=== PATIENT | male | born 1990 | race Caucasian/White ===

== ENCOUNTER 2016-11-08 18:34 | Emergency (ER) | payer MEDICARE ==
--- NOTE | ~2016-11-08 | CR72 ---
[facility] A Service of [facility] & [facility] & [facility] RADIOLOGY TEXT RESULTS PATIENT: MARIA ELENA MCFARLANE LOCATION: [facility] : [birth year] UNIT #: [id number] AGE: [address]: Alec Padilla DO SEX: M ORDER DR: [id number] [facility] [address] [place], [place] [address] [id number] MR#: [id number] Acc #: [id number] NAME: MARIA ELENA MCFARLANE : 1990 SEX: M STUDY DATE/TIME: 11/08/2016 19:20 UNIT: [facility] ROOM: STUDY DESCRIPTION: CR Chest Single View Portable Attending Physician: Alec Padilla D.O. Ordering Physician: Alec Padilla D.O. Primary Care Physician: Toño Orozco M.D. MEDICAL IMAGING REPORT This report is preliminary unless electronic signature is present EXAM Portable chest. HISTORY Congestion today. Possible aspiration. Heroin overdose today. Unresponsive. FINDINGS Cardiac size and pulmonary vascularity are within normal limits allowing for shallow inspiration. No definite infiltrates or effusions. Postop changes in the right glenoid. Mild degenerative changes in the right glenohumeral joint. IMPRESSION No definite active disease in the lungs. Low lung volumes. Dictated by... Jt Lala M.D. THIS IS AN ELECTRONICALLY VERIFIED REPORT Jt Lala M.D. at 11/09/2016 1:10 PM GLENN/marysol TD: 11/08/2016 23:33 JOB #: [id number] MEDICAL IMAGING REPORT Page 1 of 1 COPY
[~2016-11-08 18:34] MED LIST: DEPAKOTE PO; FLEXERIL PO; IBUPROFEN PO; KEFLEX PO; LEXAPRO20 MG PO; METHADONE PO; NEURONTIN300 MG PO; OLEPTRO ER150 MG PO; PHENERGAN25 MG PO; PROPRANOLOL PO; VICODIN PO; VOLTAREN50 MG PO
[2016-11-08 19:30] LABS: BASOPHIL% 0.5 % (0-2.5); EOSINOPHIL# 0.3 X10e3 (0-0.7); EOSINOPHIL% 3.4 % (0.0-7.0); HEMATOCRIT 44.9 % (38.0-50.0); HEMOGLOBIN 15.3 gm/dL (13.0-16.0); LYMPHOCYTE% 21.3 % (17.0-45.0); MEAN CELL VOLUME 88.5 FL (83-96); MEAN CORPUSCULAR HEMOGLOBIN 30.1 PG (28-34); MONOCYTE# 0.8 X10e3 (0-1.0); MONOCYTE% 8.3 % (3.0-12.0); NEUTROPHIL# 6.2 X10e3 (1.5-7.1); NEUTROPHIL% 66.5 % (40-75); PLATELET COUNT 294 X10e3 (140-420); RED BLOOD COUNT 5.07 X10e (3.90-5.60); RED CELL DISTRIBUTION WIDTH 13.5 % (11.0-15.5); WHITE BLOOD COUNT 9.4 X10e3 (4.0-10.5)
[2016-11-08 19:36] LABS: DIFF IND NO
[2016-11-08 19:53] LABS: ALKALINE PHOSPHATASE 78 U/L (32-92); ALT (SGPT) 42 U/L (10-40); AST (SGOT) 29 U/L (10-42); BILIRUBIN, DIRECT 0.1 mg/dL (0.0-0.2); BILIRUBIN,INDIRECT 0.4 mg/dL (0.0-0.9); BILIRUBIN,TOTAL 0.5 mg/dL (0.2-2.0); BLOOD UREA NITROGEN 25 mg/dL (9-23); CALCIUM SERUM 8.3 mg/dL (8.4-10.2); CARBON DIOXIDE 27 mmol/L (22-31); CHLORIDE 98 mmol/L (100-111); GLOM FILT RATE Estimated 103.4 mL/min (>60); GLUCOSE FASTING 153 mg/dL (70-110); POTASSIUM 3.1 mmol/L (3.5-5.1); PROTEIN TOTAL SERUM 7.4 g/dL (6.0-8.3); SALICYLATE <4.0 mg/dL; SODIUM 132 mmol/L (135-145)
[2016-11-08 19:54] LABS: ACETAMINOPHEN <10 ug/mL; ALCOHOL BLOOD <5 mg/dL (0)
[2016-11-08 21:58] LABS: AMPHETAMINE NEG (NEG); BARBITURATES NEG (NEG); BENZODIAZEPINES POS (NEG); COCAINE NEG (NEG); MARIJUANA POS (NEG); OPIATES POS (NEG); TRICYCLIC ANTIDEPRESSANTS NEG (NEG); U METHADONE NEG (NEG)
== END 2016-11-08 22:00 | disposition home or self-care (01) ==
LOC: CED 18:34
PROVIDERS: Emergency Medicine
DX: T40.1X1A Poisoning by heroin, accidental (unintentional), initial encounter (principal); R56.9 Unspecified convulsions; Z86.19 Personal history of other infectious and parasitic diseases
CPT/HCPCS: 36415; 71010; 80048; 80076; 80307; 84484; 85025; 96374; 99284; G0480; J2405

== ENCOUNTER 2016-11-29 09:00 | Inpatient (IN) | payer MEDICARE ==
--- NOTE | ~2016-11-29 | PN ---
Unit #: [id number] #: [id number] Patient: MARIA ELENA EDMONDS [id number] [facility] [address] [place] [address] [id number] I MR#: [id number] NAME: MARIA ELENA EDMONDS ROOM: [facility] Age: 25 Sex: M Admission Date: 11/29/2016 : 1990 Attending Physician: Annette Rankin M.D. Admitting Physician: Annette Rankin M.D. Primary Care Physician: Primary Care Physician Lelia BEAN NOTES DATE OF SERVICE: 12/01/2016 SUBJECTIVE Mr. Edmonds is a 25-year-old white male who was seen today and chart was reviewed and the case was discussed with the staff. He has been anxious, withdrawn, and rather seclusive to himself. Meanwhile, he has been cooperative with treatment recommendations and has been taking medications and tolerating them fairly well with no reported side effects. MENTAL STATUS EXAMINATION Young white male who was casually dressed with fair personal hygiene, appears to be in no acute distress or discomfort. He was awake and alert on interaction with intact orientation. His mood was anxious with a congruent affect. He denies any suicidal or homicidal ideations. His insight and judgment remain slightly impaired. TREATMENT PLAN 1. We will continue his current medications and treatment protocol. We will monitor his response to medications and make further adjustments as needed. 2. We will continue to follow up. Dictated by... [place] Gaviria/bol TD: 12/01/2016 08:30 JOB #: [id number] NIYA PROGRESS NOTES Page 1 of 1 X Annette Rankin MD PROGRESS NOTE
--- NOTE | ~2016-11-29 | DS ---
Unit #: [id number] #: [id number] Patient: MARIA ELENA MCFARLANE [id number] [facility] [address] [place] [address] [id number] I MR#: [id number] NAME: MARIA ELENA MCFARLANE ROOM: [facility] Age: 26 Sex: M Admission Date: 11/29/2016 : 1990 Discharge Date: 12/04/2016 Attending Physician: Annette Rankin M.D. Primary Care Physician: Primary Care Physician No DISCHARGE SUMMARY IDENTIFYING DATA Mr. Mcfarlane is a 25-year-old single disabled white male with history of substance abuse and dependence, who is known to me from previous encounters was self-referred to the hospital. DISCHARGE DIAGNOSES PSYCHIATRIC 1. Opiate dependence moderate. 2. Acute withdrawals. 3. Alcohol dependence moderate. 4. Opioid induced mood disorder. MEDICAL 1. Seizure disorder. 2. Traumatic brain injury. HISTORY OF PRESENT ILLNESS/PAST PSYCHAITRIC HISTORY/PAST MEDICAL HISTORY Please copy and paste from initial psychiatric evaluation. HOSPITAL COURSE The patient was admitted to the adult chemical dependence unit at [facility] k[facility]ie [facility] and was oriented to the hospital environment. Routine p.r.n. medications were initiated and he was started on the detox protocol and he was closely monitored. He was taking medications regularly and is tolerating them fairly well and was able to show a decent therapeutic response and such it was decided that he will be discharged and we will continue treatment on outpatient basis. DISCHARGE MEDICATIONS None. DISCHARGE CONDITION Stable. PROGNOSIS Guarded. Dictated by... Annette Rankin M.D. Unit #: [id number] #: [id number] Patient: MARIA ELENA MCFARLANE SEAN/rljeramy TD: 12/26/2016 02:55 JOB #: [id number] DISCHARGE SUMMARY Page 1 of 1 X Annette Rankin MD X DISCHARGE SUMMARY
--- NOTE | ~2016-11-29 | A ---
[facility] Nutrition Therapy DATE: 12/01/16 Patient: MARIA ELENA MCFARLANE Physician: AFAIRF Address: [address] [address] Room/Bed: P181-1 [facility], Zip: [place] [address] Admit Date: 11/29/16 Date of : [birth year] Height: 5 10 Weight: [phone] NUTRITIONAL ASSESSMENT: REASON: 1 point malnutrition score re: unintentional weight loss Admitting dx: 25 y/o male admitted with heroin abuse, SI PMH: Epilepsy, TBI, Hep C Anthropometrics: Ht: 70", Wt: 170 lbs (pt confirms), UBW: 180-185 lbs, BMI: 24.4 (normal) Labs: No new labs available Meds: Reviewed Assessment: Chart reviewed, events noted. See admitting dx and PMH as stated above. Patient is on disability, is homeless, used IV heroin and is wanting to get clean. He is on a regular diet, no caffeine, large portion entree ordered. UBW as stated above, pt confirms 10-15 lb weight loss in past 2 months due to drug abuse and decreased oral inake (6-8% body weight loss; significant). States current appetite is fair-good and that he is eating quite well now, however he is amenable to daily Ensure shakes to help prevent further unintentional weight loss. RD encouraged adequate kcal/protein intake, patient agreed. See recs below. Dx: Unintentional weight loss r/t drug abuse, decreased oral intake AEB 6-8% body weight loss in 2 months, 1 point malnutrition risk score. Intervention: Daily Ensure shakes Monitoring, Evaluation and Goals: 1. PO intake > 50% of meals/supps. 2. Prevent further unintentional weight loss. Monitor: Per protocol, criteria to determine if above goals met Recommendations: 1. Continue regular diet with no caffeine, encourage fluids. Will continue to send large portion entree. RD wrote in chart for MD to order daily Ensure shakes (vanilla or chocolate). Will notify [facility] staff to send with AM snack. 2. Please weigh q 3 days for monitoring purposes. [facility] Nutrition Therapy DATE: 12/01/16 Patient: MARIA ELENA MCFARLANE Physician: AFAIRF Address: [address] [address] Room/Bed: P181-1 [facility], Zip: [place] [address] Admit Date: 11/29/16 Date of : [birth year] Height: 5 10 Weight: [phone] 3. Please consult RD with any further nutritional needs. Mild nutrition risk Respectfully, Aster Whitley, SOFIA, LD [facility] cc: client file
--- NOTE | ~2016-11-29 | HP ---
Unit #: [id number] #: [id number] Patient: MARIA ELENA MCFARLANE [id number] [place] [address] [id number] I MR#: [id number] NAME: MARIA ELENA MCFARLANE ROOM: [facility] Age: 25 Sex: M Admission Date: 11/29/2016 : 1990 Attending Physician: Annette Rankin M.D. Admitting Physician: Annette Rankin M.D. Primary Care Physician: Primary Care Physician No HISTORY AND PHYSICAL HISTORY OF PRESENT ILLNESS The patient is a 25-year-old male admitted to [facility] on 11/30/2016 for heroin abuse and suicidal ideations. PAST MEDICAL HISTORY 1. TBI 2. Epilepsy PAST SURGICAL HISTORY 1. Eye surgery 2. Shoulder 3. Right wrist times two 4. Right knee SOCIAL HISTORY He is disabled. He is homeless. He uses one gram of heroin per day. FAMILY MEDICAL HISTORY Noncontributory. ALLERGIES No known drug allergies. CURRENT MEDICATIONS 1. Seroquel 2. Ambien 3. Protonix 4. Keppra 5. Thorazine REVIEW OF SYSTEMS CONSTITUTIONAL: No fever or chills. HEENT: Denies any sore throat, ear pain or runny nose. CARDIOVASCULAR: Denies chest pain, irregular heart rhythm or palpitations. CHEST: Denies shortness of breath or cough. No hemoptysis. GASTROINTESTINAL: Denies nausea, vomiting, diarrhea or chronic constipation. ENDOCRINE: Denies history of increased thirst or urination. No recent significant weight loss or gain. GENITOURINARY: Denies dysuria, frequency, or hematuria. SKIN: Denies any rashes. HEMATOLOGIC: Denies history of increased bleeding or bruising. MUSCULOSKELETAL: Denies any hot, swollen joints. No generalized muscle Unit #: [id number] #: [id number] Patient: MARIA ELENA MCFARLANE pain. NEUROLOGIC: Denies problems with vision or speech. No frequent, severe headaches. No numbness, tingling or weakness in any extremities. Denies loss of bladder or bowel control. PHYSICAL EXAM GENERAL: He is awake, alert and oriented in no acute distress. VITAL SIGNS: Temperature 97.7, heart rate 72, respiration 16, blood pressure 137/92. HEIGHT: 5'10". WEIGHT: 170 pounds. SKIN: Warm and dry without rash or lesion. HEENT: Normocephalic. TMs not viewed. Oral and nasal passages clear. Conjunctivae clear. PERRLA. EOMs intact. NECK: Supple without lymphadenopathy or thyromegaly. HEART: Regular rate and rhythm without murmur. LUNGS: Clear. ABDOMEN: Soft, nontender. : Not done. EXTREMITIES: No evidence of cyanosis, clubbing or edema. Moves all without focal deficit. NEUROLOGICAL: Grossly within normal limits. Cranial Nerves: II: Visual spicer are intact. III, IV AND : Extraocular movements are intact. Pupils are equal, round and reactive to light. V: Facial sensation is grossly normal. VII: Facial movements and expression are normal. VIII: Auditory acuity grossly intact. IX, X: Uvula is midline. Phonation is normal. XI: Patient shrugs shoulders and turns head normally. XII: Tongue protrudes in the midline. Sensory and Motor Function: Sensory and motor sensation is grossly normal. Motor: moves all extremities well. IMPRESSION 1. Psychiatric admission. 2. TBI. 3. Epilepsy. RECOMMENDATIONS Psychiatric per psychiatrist. MEDICAL: No contraindication to participate in facility activities. MEDICAL PROGNOSIS Good. MEDICAL CONDITION Stable. Dictated by... Heidi Villeda/antoinette Unit #: [id number] #: [id number] Patient: MARIA ELENA MCFARLANE TD: 12/01/2016 05:29 JOB #: [id number] HISTORY AND PHYSICAL Page 1 of 1 X LOUIS DOUGLAS APRN HISTORY AND PHYSICAL
--- NOTE | ~2016-11-29 | PN ---
Unit #: [id number] #: [id number] Patient: MARIA ELENA EDMONDS [id number] [facility] [address] [place] [address] [id number] MR#: [id number] NAME: MARIA ELENA EDMONDS ROOM: [facility] Age: 25 Sex: M Admission Date: 11/29/2016 : 1990 Attending Physician: Annette Rankin M.D. Admitting Physician: Annette Rankin M.D. Primary Care Physician: Primary Care Physician Lelia NÚÑEZ PROGRESS NOTES DATE 12/02/2016 DISCUSSION Mr. Edmonds is a 25-year-old, white male who was seen today and chart was reviewed and case was discussed with the staff. He has been anxious, withdrawn and rather seclusive to himself. Meanwhile, he has been cooperative with treatment recommendations. He has been taking medications and tolerating them fairly well with no reported side effects. MENTAL STATUS EXAM Young white male who was casually dressed with fair personal hygiene, appears to be in no acute distress or discomfort. He was awake and alert on interaction with intact orientation. His mood was anxious with congruent affect. He denies any suicidal or homicidal ideation. His insight and judgement remains slightly impaired. TREATMENT PLAN 1. We will continue him on his current medications and treatment protocol. We will monitor his response to the medication and make further adjustments as needed. 2. We will continue to follow up. Dictated by... Joanna Gaviria/antoinette TD: 12/03/2016 02:20 JOB #: [id number] Unit #: [id number] #: [id number] Patient: MARIA ELENA EDMONDS PROGRESS NOTES Page 1 of 1 X Annette Rankin MD PROGRESS NOTE
--- NOTE | ~2016-11-29 | DS ---
Unit #: [id number] #: [id number] Patient: MAR[facility] ELENA EDMONDS [id number] [facility] [address] [place] [address] [id number] I MR#: [id number] NAME: MARIA ELENA EDMONDS ROOM: [facility] Age: 25 Sex: M Admission Date: 11/29/2016 : 1990 Discharge Date: 12/04/2016 Attending Physician: Annette Rankin M.D. Primary Care Physician: Primary Care Physician No DISCHARGE SUMMARY Discharged against medical advice on 12/04/2016. IDENTIFICATION DATA Mr. Edmonds is a 25-year-old white male who is very well known to us from previous encounter and was self-referred to the hospital. DISCHARGE DIAGNOSES PSYCHIATRIC: Bipolar disorder, most recent episode, depressed, recurrent, moderate, without psychotic features. Alcohol dependence, moderate, in acute withdrawals. Opioid dependence, moderate. MEDICAL: History of traumatic brain injury. STRESSORS: Moderate psychosocial stressors. HISTORY OF PRESENT ILLNESS Same as in initial psychiatric evaluation. PAST PSYCHIATRIC HISTORY Same as in initial psychiatric evaluation. PAST MEDICAL HISTORY Same as in initial psychiatric evaluation. HOSPITAL COURSE The patient was admitted to the adult psychiatric chemical dependence unit at [facility] k[facility] and was oriented to the hospital environment. Routine p.r.n. medications were initiated, and he was started back on his home medications. Medications were adjusted and detox protocol was initiated. However, he was once again seen to be showing very poor insight and poor motivation towards treatment, and decided that he wanted to leave against medical advice and was denying any suicidal ideation, intent, or plan and was not seen to be meeting criteria for involuntary psychiatric hospitalizations. As such, it was decided that he will be discharged, and we will continue treatment on outpatient basis. CONDITION AT DISCHARGE Stable. PROGNOSIS Fair. Unit #: [id number] #: [id number] Patient: MARIA ELENA EDMONDS Dictated by... [place] Gaviria/hankg TD: 12/20/2016 14:05 JOB #: [id number] DISCHARGE SUMMARY Page 1 of 1 X Annette Rankin MD X DISCHARGE SUMMARY
--- NOTE | ~2016-11-29 | PN ---
Unit #: [id number] #: [id number] Patient: MARIA ELENA EDMONDS [id number] [facility] [address] [place] [address] [id number] I MR#: [id number] NAME: MARIA ELENA EDMONDS ROOM: [facility] Age: 25 Sex: M Admission Date: 11/29/2016 : 1990 Attending Physician: Annette Rankin M.D. Admitting Physician: Annette Rankin M.D. Primary Care Physician: Primary Care Physician Lelia NÚÑEZ PROGRESS NOTES DATE 12/03/2016 DISCUSSION Mr. Edmonds is a 25-year-old white male who was seen today and chart was reviewed and case was discussed with the staff. He has been anxious, withdrawn and rather seclusive to himself. Meanwhile, he has been cooperative with treatment recommendations and has been taking medications and tolerating them fairly well with no reported side effects. MENTAL STATUS EXAMINATION Young white male who was casually dressed with fair personal hygiene and appears to be in no acute distress or discomfort. He was awake and alert on interaction with intact orientation. His mood was anxious with congruent affect. He denies any suicidal or homicidal ideation. His insight and judgement remains slightly impaired. TREATMENT PLAN 1. Will continue on current medications and treatment protocol. Will monitor response to the medications and make further adjustments as needed. 2. Will continue to follow up. Dictated by... [place] Gaviria/james TD: 12/03/2016 15:27 JOB #: [id number] Unit #: [id number] #: [id number] Patient: MARIA ELENA EDMONDS PROGRESS NOTES Page 1 of 1 X Annette Rankin MD PROGRESS NOTE
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
[2016-12-01 10:01] LABS: URINE APPEARANCE TURBID; URINE BILIRUBIN NEG (NEG); URINE BLOOD NEG (NEG); URINE COLOR YELLOW; URINE GLUCOSE NEG (NEG); URINE KETONE NEG (NEG); URINE LEUKOCYTE ESTERASE NEG (NEG); URINE NITRATE NEG (NEG); URINE PH 7.5 (5-8); URINE PROTEIN NEG (NEG); URINE SPECIFIC GRAVITY 1.022 (1.003-1.035)
[2016-12-01 10:41] LABS: AMPHETAMINE POS (NEG); BARBITURATES NEG (NEG); BENZODIAZEPINES NEG (NEG); COCAINE NEG (NEG); MARIJUANA POS (NEG); OPIATES NEG (NEG); TRICYCLIC ANTIDEPRESSANTS NEG (NEG); U METHADONE NEG (NEG)
== END 2016-12-04 10:20 | DRG 885 ==
LOC: P1E 11:51
PROVIDERS: Psychiatry & Neurology Psychiatry
PROC: HZ2ZZZZ Detoxification Services for Substance Abuse Treatment (ICD-10-PCS; principal; 2016-11-29)
DX: F31.32 Bipolar disorder, current episode depressed, moderate (principal); R45.851 Suicidal ideations; G40.909 Epilepsy, unspecified, not intractable, without status epilepticus; F11.23 Opioid dependence with withdrawal; Z87.820 Personal history of traumatic brain injury
CPT/HCPCS: 80307; 81003

== ENCOUNTER 2016-12-17 22:58 | Inpatient (IN) | payer MEDICARE ==
[~2016-12-17] VITALS: Ht 177.8 cm; Wt 77.1 kg
--- NOTE | ~2016-12-17 | PN ---
Unit #: [id number] #: [id number] Patient: MARIA ELENA MCFARLANE [id number] [facility] [address] [place] [address] [id number] MR#: [id number] NAME: MARIA ELENA MCFARLANE ROOM: [facility] Age: 25 Sex: M Admission Date: 12/18/2016 : 1990 Attending Physician: Annette Rankin M.D. Admitting Physician: Annette Rankin M.D. Primary Care Physician: Primary Care Physician Lelia BEAN NOTES DATE OF SERVICE 12/19/2016 DISCUSSION Mr. Mcfarlane is a 25-year-old white male who was seen today. Chart was reviewed and case was discussed with the staff. He has been anxious, withdrawn, and rather seclusive to himself. Meanwhile, he has been cooperative with the treatment recommendations and has been taking the medications and tolerating them fairly well with no reported side effects. MENTAL STATUS EXAMINATION Young white male who is casually dressed with fair personal hygiene, appears to be in no acute distress or discomfort. The patient was awake and alert with intact orientation. His mood is anxious with a congruent affect. He denies any suicidal or homicidal ideations and also denies any auditory or visual hallucinations. His insight and judgment remain slightly impaired. TREATMENT PLAN 1. We will continue him on his current medications and treatment protocol. We will monitor his response to the medications and make further adjustments as needed. 2. We will continue to follow up. Dictated by... Annette Rankin M.D. IAA/hankg TD: 12/19/2016 10:17 JOB #: [id number] Unit #: [id number] #: [id number] Patient: MARIA ELENA MCFARLANE PROGRESS NOTES Page 1 of 1 X Annette Rankin MD X PROGRESS NOTE
--- NOTE | ~2016-12-17 | DS ---
Unit #: [id number] #: [id number] Patient: MAR[facility] ELENA MCFARLANE [id number] [facility] [address] [place] [address] [id number] MR#: [id number] NAME: MARIA ELENA MCFARLANE ROOM: [facility] Age: 26 Sex: M Admission Date: 12/18/2016 : 1990 Discharge Date: 12/19/2016 Attending Physician: Annette Rankin M.D. Primary Care Physician: Primary Care Physician No DISCHARGE SUMMARY IDENTIFICATION DATA Mr. Mcfarlane is a 26-year-old white male who is known to us from previous encounter and was self-referred to the hospital. DISCHARGE DIAGNOSES PSYCHIATRIC: Alcohol dependence, moderate, in acute withdrawal. Opioid dependence, moderate, in acute withdrawal. MEDICAL: History of traumatic brain injury. STRESSORS: Moderate psychosocial stressors. HISTORY OF PRESENT ILLNESS Same as in initial psychiatric evaluation. PAST PSYCHIATRIC HISTORY Same as in initial psychiatric evaluation. PAST MEDICAL HISTORY Same as in initial psychiatric evaluation. HOSPITAL COURSE The patient was admitted to the adult chemical dependency unit at [facility] kristie Medrano and was oriented to the hospital environment. Routine p.r.n. medications were initiated, and he was started back on his home medications. However, soon afterwards he stated that he just lied to get into the program saying that he is not really detoxing and that he has got himself of that in a rehab facility, and therefore wants to be discharged and wants to continue treatment on outpatient basis and was denying any suicidal ideations, intent, or plan and was not seen to be a danger to self or anyone else and was not meeting criteria for involuntary psychiatric hospitalizations. As such it was decided that he will be discharged from the program. We will recommend ongoing outpatient treatment. CONDITION AT DISCHARGE Stable. PROGNOSIS Fair. Dictated by... Annette Rankin M.D. Unit #: [id number] #: [id number] Patient: MARIA ELENA MCFARLANE IAA/bzg TD: 01/07/2017 11:34 JOB #: [id number] DISCHARGE SUMMARY Page 1 of 1 X Annette Rankin MD X DISCHARGE SUMMARY
--- NOTE | ~2016-12-17 | HP ---
Unit #: [id number] #: [id number] Patient: MARIA ELENA MCFARLANE [id number] [facility] [address] [place] [address] [id number] I MR#: [id number] NAME: MARIA ELENA MCFARLANE ROOM: [facility] Age: 25 Sex: M Admission Date: 12/18/2016 : 1990 Attending Physician: Annette Rankin M.D. Admitting Physician: Annette Rankin M.D. Primary Care Physician: Primary Care Physician No HISTORY AND PHYSICAL The patient is a 25-year-old male admitted to [facility] on 12/18/2016 for suicidal ideations and to detox from heroin. The patient had a recent admission on 11/29/2016 where a full history and physical was completed. That history and physical has been reviewed no changes need to made. Dictated by... Heidi Villeda/antoinette TD: 12/18/2016 23:11 JOB #: [id number] HISTORY AND PHYSICAL Page 1 of 1 X LOUIS DOUGLAS APRN X HISTORY AND PHYSICAL
--- NOTE | ~2016-12-17 | PA ---
Unit #: [id number] #: [id number] Patient: MARIA ELENA MCFARLANE [id number] [facility] [address] [place] [address] [id number] MR#: [id number] NAME: MARIA ELENA MCFARLANE ROOM: P184 Age: 25 Sex: M Admission Date: 12/18/2016 : 1990 Date of Assessment: Attending Physician: Annette Rankin M.D. Admitting Physician: Annette Rankin M.D. Primary Care Physician: Primary Care Physician No PSYCHIATRIC ASSESSMENT IDENTIFYING DATA Mr. Mcfarlane is a 25-year-old, single, white male, who is a resident of [place], [place], and is known to us from previous multiple encounters, recently discharged from my care a couple of weeks ago and did not follow up with any treatment recommendation and once again brought himself back to the hospital as a transfer from [place], [place] on 72 hours hold. CHIEF COMPLAINT "Depression is getting progressively worse and suicidal thoughts began this morning." HISTORY OF PRESENT ILLNESS Mr. Mcfarlane is a 25-year-old white male with a history of substance abuse and mood disorder, who took himself to the emergency room reporting depression and suicidal ideation and was placed on 72 hours hold. The patient reports depression on and off for years and has been progressively getting worse and now reports suicidal thoughts with a plan to "slit my wrist." He has a drug screen positive for cocaine and cannabis and was seen to be tearful, staring at the ceiling and stating that he has been seeing snakes and this started this morning and reports disturbed sleep and appetite, poor energy level, psychomotor retardation, feelings of hopelessness and helplessness, and suicidal ideations and as such, recommendation for inpatient level of care for safety and stabilization was made and the patient was transferred to us. SUBSTANCE ABUSE HISTORY The patient reports history of alcohol, cannabis, cocaine, and opioid abuse, and more recently, he has been using cocaine and cannabis on a regular basis. PAST PSYCHIATRIC HISTORY The patient has had a history of multiple inpatient psychiatric hospital[facility], and [facility] and has had a history of poor compliance with treatment recommendations and carries a diagnosis of bipolar disorder and was supposed to be on Seroquel, but has been noncompliant with medication and as such, has been decompensating. PAST MEDICAL HISTORY Significant for seizure disorder, hypertension, gastroesophageal reflux disease, osteoarthritis, traumatic brain injury, lumbar radiculopathy. Unit #: [id number] #: [id number] Patient: MARIA ELENA MCFARLANE ALLERGIES Dilaudid, oxycodone, hydrocodone, morphine. PERSONAL AND SOCIAL HISTORY A 25-year-old white male, who reports that he is single, disabled, and lives by himself and has poor social support system. MENTAL STATUS EXAMINATION Young white male, who was casually dressed with fair personal hygiene, appears to be in no acute distress or discomfort. He was awake and alert on interaction with intact orientation to time, place, and person. His mood was anxious and depressed with a congruent affect. His speech was slow and goal directed. He reports having suicidal ideation, but denies any homicidal ideations, and also denies any auditory or visual hallucinations. His insight and judgment remain significantly impaired. DIAGNOSTIC IMPRESSION Psychiatric: Bipolar disorder, most recent episode depressed, recurrent, moderate, with psychotic features; cocaine dependence, moderate; cannabis abuse, moderate; opioid dependence, moderate. Medical: Hypertension, gastroesophageal reflux disease, seizure disorder, traumatic brain injury, osteoarthritis, lumbar radiculopathy. Stressors: Moderate psychosocial stressors. TREATMENT PLAN 1. The patient has presented with history of substance abuse and mood disorder, and has been decompensating and will need inpatient hospitalization for safety and stabilization. We will start him back on his home medications. We will adjust the medications and monitor response. 2. Supportive therapy was provided to the patient. 3. Safe, structured, and nourishing environment will be provided. ESTIMATED LENGTH OF STAY 5 to 7 days. ABILITY TO HELP SELF Limited. WILLINGNESS TO HELP SELF The patient appears to be willing to help self. STRENGTHS 1. Communicative. 2. Cooperative. PROBLEMS 1. Chronic dysphoric symptoms. 2. Poor social support system. DISCHARGE CRITERIA This will be contingent upon the patient's ability to show resolution of his depression and anxiety and his ability to stay safe to himself, particularly after discharge from the hospital. Dictated by... Unit #: [id number] #: [id number] Patient: MARIA ELENA MCFARLANE Joanna Gaviria/adrián TD: 12/18/2016 06:47 JOB #: [id number] PSYCHIATRIC ASSESSMENT Page 1 of 1 X Annette Rankin MD PSYCHIATRIC ASSESSMENT
== END 2016-12-19 12:00 | DRG 885 ==
LOC: P1E 12-18 02:10
DX: F31.4 Bipolar disorder, current episode depressed, severe, without psychotic features (principal); F11.20 Opioid dependence, uncomplicated; I10 Essential (primary) hypertension; F14.20 Cocaine dependence, uncomplicated; G40.909 Epilepsy, unspecified, not intractable, without status epilepticus; Z87.820 Personal history of traumatic brain injury; F12.20 Cannabis dependence, uncomplicated; K21.9 Gastro-esophageal reflux disease without esophagitis; M19.90 Unspecified osteoarthritis, unspecified site; M54.10 Radiculopathy, site unspecified